=== PATIENT | female | born 1935 | race Caucasian/White ===

== ENCOUNTER 2017-01-10 10:16 | Emergency (ER) | payer MEDICARE, BC, OTHER ==
[2016-08-20 12:28] VITALS: BMI 28.2
[~2017-01-10 10:16] MED LIST: ADVAIR HFA 45/212 GM INH; ARAVA10 MG PO; ARICEPT5 MG PO; CARAFATE1 G PO; CATAPRES0.1 MG PO; CELEXA20 MG PO; HYDROCODONE-APA1 TAB PO; ISOSORBIDE MONO30 M1 PO; LIPITOR80 MG PO; LYRICA75 MG PO; NORMODYNE / TR200 MG PO; NORVASC5 MG PO; PEPCID20 MG PO; PLAVIX75 MG PO; SINGULAIR10 MG PO
[2017-01-10 11:46] LABS: BASOPHILS 0.4 % (0.0-2.0); EOSINOPHILS 1.2 % (0-7); HEMATOCRIT 24.9 % (36.0-48.0); HEMOGLOBIN 7.9 g/dL (12-16); IMMATURE GRANULOCYTES 0.2 % (0-5); LYMPHOCYTES 22.7 % (15-50); MCH 31.6 pg (26.0-34.0); MCHC 31.7 g/dL (31.0-37.0); MCV 99.6 fL (80.0-100.0); MEAN PLATELET VOLUME 10.2 fL (7.4-10.4); MONOCYTES 11.8 % (2-11); NEUTROPHILS 63.7 % (40-80); PLATELET COUNT 194 10x3/uL (130-400); RDW 16.2 % (11.5-14.5)
[2017-01-10 12:02] LABS: ALBUMIN 2.9 g/dL (3.4-5.0); ANION GAP 8.9 mmol/L (8-16); BILIRUBIN - TOTAL 0.33 mg/dL (0.2-1.3); CALCIUM 8.3 mg/dL (8.5-10.1); CARBON DIOXIDE 32.5 mmol/L (21.0-32.0); CREATININE - SERUM 3.1 mg/dL (0.6-1.3); POTASSIUM - SERUM 3.4 mmol/L (3.5-5.1)
== END 2017-01-10 14:20 | disposition home or self-care (01) ==
LOC: D.ER 10:16
PROVIDERS: Emergency Medicine
DX: R53.1 Weakness (principal); I12.0 Hypertensive chronic kidney disease with stage 5 chronic kidney disease or end stage renal disease; N18.6 End stage renal disease; D64.9 Anemia, unspecified; E11.9 Type 2 diabetes mellitus without complications; F03.90 Unspecified dementia, unspecified severity, without behavioral disturbance, psychotic disturbance, mood disturbance, and anxiety

== ENCOUNTER 2017-01-15 11:12 | Inpatient (IN) | payer MEDICARE, BC, OTHER ==
[~2017-01-15] VITALS: Ht 170.2 cm; Wt 83.0 kg
--- NOTE | ~2017-01-15 | DS ---
PATIENT:BRITNI NUNN :37 MEDICAL RECORD: [id number] DISCHARGE SUMMARY ADMISSION DATE: 01/15/17 DISCHARGE DATE: 01/17/17 HISTORY OF PRESENT ILLNESS: Ms. Nunn is a very pleasant 81-year-old white female with end-stage renal disease on chronic dialysis, has been stable with no recent admissions. In the dialysis unit in the past week she related black tarry stools along with falling hemoglobin and hematocrit requiring 2 units of packed cells. Due to evidence of GI bleeding, she was admitted for the above. HOSPITAL COURSE: The patient was begun on active medical therapy, was seen by Dr. Li of GI and underwent an EGD with finding of some antral erosions along with a polypoid duodenal lesion that may have been the site of bleeding that was not actively bleeding at the time of EGD. She did receive transfusion of 1 unit. She did not receive any further transfusion during the hospitalization. Following that, she underwent a colonoscopy that had 2 polypectomies, but no other, and 1 small ulcer that was not bleeding, but no other major lesions were identified. Postoperatively, her hemoglobin and hematocrit were stable and she was otherwise asymptomatic. DISCHARGE DIAGNOSES: 1. Gastrointestinal bleeding with probable duodenal source. 2. End-stage renal disease. 3. Recurrent transfusion due to gastrointestinal bleeding with chronic anemia. 4. Organic heart disease, status post cardiac stenting. 5. Hypertension. 6. Hyperlipidemia. PLAN: The patient will be discharged today following her dialysis. She will resume her outpatient dialysis schedule. We will see her on a weekly basis in the dialysis unit starting next week. She will resume her outpatient Epogen. DISCHARGE MEDICATIONS: Will be Celexa 20 mg at bedtime, Aricept 5 mg at bedtime, Protonix 40 mg daily, Renvela 800 mg 2 t.i.d. and Carafate 1 g before meals and at bedtime. TRANSINT:[id number] Voice Confirmation ID: [id number] DOCUMENT ID: [id number] OANH GANNON MD CC: [id number] DICTATION DATE: 01/17/17624 SHIPPING HAND: 01/17/172308 DIS IN 01/17/17 [id number] [place] [id number]
--- NOTE | ~2017-01-15 | HP ---
PATIENT: BRITNI NUNN MEDICAL RECORD: [id number] ACCOUNT: [id number] LOCATION:D. D.2130 : 37 ADMISSION DATE: 01/15/17 HISTORY AND PHYSICAL EXAMINATION Admitted to inpatient for gastrointestinal bleed requiring transfusion, multiple. HISTORY OF PRESENT ILLNESS: She is a 81-year-old female with a past medical history of GI bleeding and colonic polyps with removal by Dr. Maldonado and Dr. Newby. She has been having noticeable black tarry stools, required 2 units of packed red blood cells on Friday and her hemoglobin went down to 7.8 rather than up. She has been having some dyspepsia as well. She has been taking Pepcid at home, but has a history of GI issues, seen by Dr. Maldonado and Dr. Newby. REVIEW OF SYSTEMS: Weakness and fatigue, dyspnea on exertion. No cough or orthopnea. No chest pain, no angina. All other review of systems are negative. ALLERGIES: ALBUTEROL, CODEINE, DEMEROL, IRON SULFATE, LISINOPRIL, PENICILLINS. FAMILY HISTORY: Father had pneumonia. Mother had from complications of a fall. SOCIAL HISTORY: She is still living on her own with help from family. No alcohol or tobacco. PAST MEDICAL HISTORY: 1. COPD. 2. End-stage renal disease. 3. Degenerative joint disease. 4. Depression. 5. Diabetes. 6. Dialysis AV fistula in left arm. 7. Disc herniation. 8. History of gouty arthritis. 9. Hypertension. 10. Rheumatoid arthritis. 11. Anemia of CKD. PAST SURGICAL HISTORY: Appendectomy, hysterectomy, tonsillectomy, cholecystectomy, left arm AV fistula replacement, cataract removal, bilateral; dialysis catheter placement removal, angioplasty with left circumflex stent in 06/2014, EGD in 06/[address] Maldonado with biopsy, colonoscopy as well. HOME MEDICATIONS: We are trying to obtain her home medication list. What we have listed may be inaccurate. She is to take PhosLo 2 with meals t.i.d., Zofran 4 mg 1 every 4 hours p.r.n. nausea, Pepcid 20 a day, Advair 2 puffs b.i.d., Plavix 75 a day, Catapres 0.1 p.r.n. systolic over 160, Aricept 5 mg a day, Lasix 20 b.i.d., Lipitor 80 at night, Biotin 1 tab daily, Singulair 10 at night, Celexa 20 mg daily, Trandate 100 mg half a tab; Lyrica 50 mg 1 in the morning, 2 at bedtime; Carafate 1 q.i.d., aspirin 81 a day, Zanaflex 1/2 a tablet every 8 hours p.r.n. back spasm, Mirapex 0.125 daily, Imdur 60 mg a day, EMLA cream p.r.n. and sliding scale. She is likely not taking all the above medications and these do need to be clarified. HISTORY AND PHYSICAL [id number] BRITNI NUNN PHYSICAL EXAMINATION: VITAL SIGNS: She is 142/72, 72 heart rate, 18 respiratory rate. GENERAL: She is alert and oriented times 3. HEENT: Normocephalic, atraumatic. Clear nares. Clear throat. NECK: No JVD or thyromegaly. CHEST: Regular rhythm. S1 and S2. LUNGS: Grossly clear to auscultation after dialysis. Dialysis fistula with good bruit. No sign of infection. ABDOMEN: Nontender in all 4 quadrants with no guarding. EXTREMITIES: Trace lower extremity edema. No issues or new abnormalities with her gait. NEUROLOGIC: Cranial nerves II-XII are grossly intact. LABORATORY DATA: CMP, CBC, phosphorus, INR, type and hold 3 units of packed red blood cells are pending. Protonix 40 mg IV b.i.d., Carafate 1 g p.o. q.i.d. ASSESSMENT: 1. Gastrointestinal bleed, certainly appreciate Dr. Maldonado. We will let her know that she is being admitted to the hospital for consultation. 1. End-stage renal disease. We will continue dialysis prescription Mondays, Wednesdays and Fridays. 2. Coronary artery disease with stent placement back in 2013. It should be okay to hold aspirin and Plavix if she is still taking these medications. 3. Hyperlipidemia, has been on Lipitor. 4. Allergic rhinitis, on Singulair p.r.n. 5. Diabetes mellitus. I believed she has just been on a sliding scale. We will need to ask her if she is still checking her sugar at home. We will of course check her glucose on BMP and hemoglobin A1c if needed. 6. Restless leg syndrome with diabetic neuropathy, had been on Mirapex, Zanaflex and Lyrica. We will clarify her dose. 7. Chronic obstructive pulmonary disease, Advair 2 puffs b.i.d. as needed along with her Singulair. 8. Dementia. She is on Aricept 5 mg at night, but is oriented times 4. PLAN: 1. Please see orders. 2. Appreciate GI. 3. We will continue dialysis. 4. Packed red blood cells as needed. 5. Epogen as needed as well. TRANSINT:[id number] Voice Confirmation ID: [id number] DOCUMENT ID: [id number] FLAKO RAMOS MD CC: [id number] DICTATION DATE: 01/15/17916 MANGLE ROLL OPERATOR: 01/15/17 1146 ADM IN [facility] [address] [place] [address]
[2017-01-15 11:41] VITALS: BP 118/48; BMI 28.7
[2017-01-15 12:07] LABS: BASOPHILS 0.3 % (0.0-2.0); EOSINOPHILS 2.1 % (0-7); HEMATOCRIT 28.7 % (36.0-48.0); HEMOGLOBIN 9.1 g/dL (12-16); IMMATURE GRANULOCYTES 0.2 % (0-5); LYMPHOCYTES 12.4 % (15-50); MCH 29.7 pg (26.0-34.0); MCHC 31.7 g/dL (31.0-37.0); MCV 93.8 fL (80.0-100.0); MEAN PLATELET VOLUME 10.1 fL (7.4-10.4); MONOCYTES 10.5 % (2-11); NEUTROPHILS 74.5 % (40-80); PLATELET COUNT 211 10x3/uL (130-400); RBC 3.06 10x6/uL (4.00-5.40); RDW 21.1 % (11.5-14.5); WBC 6.1 10x3/uL (4.8-10.8)
--- NOTE | 2017-01-15 12:20 | NUR ---
20G IV PLACED IN RIGHT HAND, 1ST ATTEMPT. SALINE LOCK PLACED. PT TOLERATED WELL. PROCEDURE, BLOOD, AND ANESTHESIA CONSENTS OBTAINED PER LIVIA LAWLER. PT DENIES FURTHER NEEDS AT THIS TIME.
[2017-01-15 12:34] LABS: INR 0.99 (0.85-1.17); PROTIME 12.9 SECONDS (11.6-15.0)
[2017-01-15 12:43] LABS: ANION GAP 14.8 mmol/L (8-16); BILIRUBIN - TOTAL 0.45 mg/dL (0.2-1.3); CALCIUM 8.1 mg/dL (8.5-10.1); CARBON DIOXIDE 29.5 mmol/L (21.0-32.0); CREATININE - SERUM 3.8 mg/dL (0.6-1.3); POTASSIUM - SERUM 3.3 mmol/L (3.5-5.1); PROTEIN - SERUM 7.4 g/dL (6.4-8.2)
[2017-01-15 12:46] LABS: PHOSPHOROUS 2.8 mg/dL (2.5-4.9)
--- NOTE | 2017-01-15 14:28 | NUR ---
EKG COMPLETED PER ORDER. PRE-OP MEDS COMPLETED AND GIVEN ORDERED. CONSENTS SIGNED AND IN CHART PT WAITING TO BE TAKEN FOR EGD.
--- NOTE | 2017-01-15 16:03 | NUR ---
IV ACCESS-22 GAUGE INSERTED IN RIGHT INNER FOREARM. ANTHONY RUSSELL RN
[2017-01-15 20:00] VITALS: BP 118/45
--- NOTE | 2017-01-15 20:00 | NUR ---
REPORT RECEIVED AND CARE ASSUMED. AWAKE AND ALERT. VISITING WITH FAMILY AT BEDSIDE. DRINKING GO-LYTELY FOR COLOMOSCOPY IN AM. AMBULATES TO BATHROOM WITH ASSISTANCE. NO VOICED NEEDS. WILL CONTINUE TO MONITOR.
[2017-01-16 00:49] VITALS: BP 155/47
--- NOTE | 2017-01-16 02:06 | NUR ---
NORCO 10/325 MG PO GIVEN FOR BACK PAIN AND ARTHRITIS.
[2017-01-16 05:42] VITALS: BP 148/46
[2017-01-16 05:44] LABS: BASOPHILS 0.8 % (0.0-2.0); EOSINOPHILS 2.3 % (0-7); HEMATOCRIT 28.4 % (36.0-48.0); HEMOGLOBIN 8.8 g/dL (12-16); IMMATURE GRANULOCYTES 0.2 % (0-5); LYMPHOCYTES 20.7 % (15-50); MCH 29.7 pg (26.0-34.0); MONOCYTES 12.1 % (2-11); NEUTROPHILS 63.9 % (40-80); PLATELET COUNT 204 10x3/uL (130-400); RBC 2.96 10x6/uL (4.00-5.40); RDW 20.5 % (11.5-14.5); WBC 4.8 10x3/uL (4.8-10.8)
[2017-01-16 05:50] LABS: MCV 95.9 fL (80.0-100.0)
[2017-01-16 06:14] LABS: ANION GAP 16.6 mmol/L (8-16); CALCIUM 8.2 mg/dL (8.5-10.1); CARBON DIOXIDE 28.9 mmol/L (21.0-32.0); POTASSIUM - SERUM 3.5 mmol/L (3.5-5.1)
[2017-01-16 07:25] VITALS: BP 151/46
--- NOTE | 2017-01-16 11:08 | NUR ---
Patient Name: BRITNI NUNN Admission Status: Urgent Accout number: [id number] Admission Date: 01-15-2017 : 1935 Admission Diagnosis: Attending: CARLOS Current LOS: 1 Anticipated DC Date: 01-17-2017 Planned Disposition: Home with Home Health Primary Insurance: MEDICARE A & B Discharge Planning Comments: * Is the patient Alert and Oriented? Yes 0 * How many steps to enter\exit or inside your home? RAMP 0 * PCP DR. TAMIKO BROWN 0 * Pharmacy [facility] 0 * Preadmission Environment Home Alone 0 * ADLs Independent 0 * Equipment Walker 0 * Other Equipment NO MEDICAL EQUIPMENT PROVIDER PREFERENCE 0 * List name and contact numbers for known caregivers / representatives who currently or will assist patient after discharge: ELVIS MEADE, SON, 0 * Community resources currently utilized Home Health Other Private Duty Care 0 * Please name any agencies selected above. -OUTPATIENT DIALYSIS, [facility], MWF, 0530 -[facility] (?), -PRIVATE SITTER, [facility], DAY TIME HOURS EVERY DAY 0 * Additional services required to return to the preadmission environment? No 0 * Can the patient safely return to the preadmission environment? Yes 0 * Has this patient been hospitalized within the prior 30 days at any hospital? No 0 CM MET WITH PT IN ROOM TO DISCUSS DISCHARGE PLANNING AND NEEDS. PT REPORTS LIVING AT HOME INDEPENDENTLY AND ALONE. PT'S SON LIVES NEXT DOOR AND ASSISTS PT IF NEEDED. PT HAS PRIVATE DUTY SITTER, [facility], EVERY DAY DURING DAYTIME HOURS. [facility] ASSISTS WITH TRANSPORT TO AND FROM DIALYSIS ON MWF SCHEDULE AT 0530 AM TO [facility]. PT HAS A WALKER WITH NO MEDICAL EQUIPMENT PROVIDER PREFERENCE. PT HAS [facility] FOR NURSING AND PHYSICAL THERAPY. CM DISCUSSED AVAILABILITY OF HOME HEALTH, REHAB SERVICES AND MEDICAL EQUIPMENT. PT PLANS TO DISCHARGE HOME, WANTS [facility] RESUMED, [facility] WILL TRANSPORT HOME AT DISCHARGE. IMPORTANT MESSAGE FROM MEDICARE PROVIDED AND EXPLAINED. CM CALLED [facility], . SPOKE TO B[place]NA WHO WILL RESUME HOME HEALTH AFTER PT'S DISCHARGE. TO RESUME HOME HEALTH AT DISCHARGE, NOTIFY [facility] AT [phone], FAX DISCHARGE INFORMATION TO [facility] AT [phone]. Outpatient Coding Specialist: Samuel Franco
[2017-01-16 12:54] VITALS: BP 158/43
[2017-01-16 13:53] VITALS: Ht 170.2 cm; Wt 83.0 kg
[2017-01-16 16:19] VITALS: BP 163/41
--- NOTE | 2017-01-16 17:59 | OP ---
PATIENT NAME: BRITNI NUNN MEDICAL RECORD: [id number] :37 LOCATION:D.M2 D.2130 ADMISSION DATE:01/15/17 SURGEON: KRAIG PALMER DO DATE OF OPERATION: 01/15/2017 PROCEDURE: EGD. SCOPE: Olympus video pediatric colonoscope. MEDICATIONS: Propofol 80 mg IV per anesthesia. INDICATIONS FOR PROCEDURE: Upper GI bleed/melena. FINDINGS: Informed consent was given. The patient was made comfortable with the above medication. After reaching an adequate level of sedation by slow IV push, the patient was placed on her left side. The endoscope was then advanced through the mouth under direct visualization to the fourth portion of the duodenum. The esophagus appeared normal in its entirety, including the GE junction, without evidence of erosions or ulcerations. The endoscope was advanced into the stomach and retroflexed to view the fundus and cardia. There were no abnormalities visualized there. The endoscope was then advanced down through the body of the stomach to the antrum and prepyloric region where there are multiple superficial ulcerations. There was no evidence of current or recent bleeding from these sites. There was a single polypoid-like tissue involved with the pylorus, which was prolapsing to and fro with gastric motility. The tip of this tissue appeared erythematous and potentially hemorrhagic consistent with prolapsing tissue. It is felt that this could be the potential site of intermittent bleeding while taking Plavix. The scope was advanced beyond this site down into the duodenum where the bulb, second portion, third portion, and fourth portion of the duodenum appeared normal without erosions or ulcerations. No interventions were performed as there is no active bleeding. The scope was withdrawn from the patient. The patient tolerated the procedure well and there were no complications. ESTIMATED BLOOD LOSS: Zero. IMPRESSIONS: 1. Antral and prepyloric erosions without evidence of current or recent bleeding. 2. Single polypoid tissue site involving the pylorus with an erythematous/hemorrhagic tip, which could be the site of bleeding with use of Plavix. PLAN AND RECOMMENDATIONS: 1. Return to floor. 2. Continue monitoring hemoglobin levels and monitor for change in stools. 3. If ongoing bleeding concerns, the patient may need a colonoscopy to rule out a slow lower GI bleed. 4. Consider discontinuation of Plavix and anticoagulants due to a high risk for bleeding. 5. Continue proton pump inhibitor for 6-8 weeks to treat the superficial erosions. TRANSINT:[id number] Voice Confirmation ID: [id number] DOCUMENT ID: [id number] OPERATIVE REPORT [id number] BRITNI NUNN NATHAN A DO at 1759 CC: [id number] DICTATION DATE: 01/15/17 1533 TINTER PHOTOGRAPH: 01/15/17 1601 ADM IN [facility] [address] [id number]
[2017-01-16 20:00] VITALS: BP 173/57
--- NOTE | 2017-01-16 23:42 | NUR ---
RESUMED CARE OF PT, PT SLEEPING, BED IS LOW, SRX2, CALL LIGHT IN REACH, WILL CONTINUE TO MONITOR
--- NOTE | 2017-01-17 00:33 | NUR ---
PLACED BOX ALARM ON PT
[2017-01-17 02:00] VITALS: BP 113/50
[2017-01-17 04:30] VITALS: BP 163/54
[2017-01-17 04:47] LABS: BASOPHILS 0.4 % (0.0-2.0); EOSINOPHILS 1.7 % (0-7); HEMATOCRIT 28.4 % (36.0-48.0); HEMOGLOBIN 8.8 g/dL (12-16); IMMATURE GRANULOCYTES 0.2 % (0-5); LYMPHOCYTES 27.6 % (15-50); MCH 29.5 pg (26.0-34.0); MCV 95.3 fL (80.0-100.0); MONOCYTES 7.9 % (2-11); NEUTROPHILS 62.2 % (40-80); PLATELET COUNT 216 10x3/uL (130-400); RBC 2.98 10x6/uL (4.00-5.40); RDW 19.8 % (11.5-14.5); WBC 4.7 10x3/uL (4.8-10.8)
[2017-01-17 05:09] LABS: ANION GAP 18.1 mmol/L (8-16); CALCIUM 8.7 mg/dL (8.5-10.1); CARBON DIOXIDE 26.8 mmol/L (21.0-32.0); POTASSIUM - SERUM 3.9 mmol/L (3.5-5.1)
[2017-01-17 05:11] LABS: CREATININE - SERUM 6.7 mg/dL (0.6-1.3)
[2017-01-17 07:31] VITALS: BP 131/44
--- NOTE | 2017-01-17 07:58 | NUR ---
RECEIVED REPORT FROM NIGHT NURSE. PATIENT ASLEEP. WILL CONTINUT TO MONITOR.
--- NOTE | 2017-01-17 09:42 | NUR ---
DIALYSIS COORDINATOR: PATIENT PATHWAYS: [facility] DIALYSIS MON/FRI/FRI 1ST SHIFT. CLINIC NOTIFIED AND UPDATED MEDICAL RECORDS FORWARDED TO CLINIC. PATIENT IS EXPECTED TO DISCHARGE LATER TODAY AFTER DIALYSIS. JAY MENENDEZ
--- NOTE | 2017-01-17 11:00 | NUR ---
ASSUMED CARE FOR THIS PT FOR THE REMAINDER OF TODAYS DAYSHIFT. PT IS DOWN IN DIALYSIS. CALLED TO CHECK ON HER AND SHE IS TOLERATING DIALYSIS FINE AND DENIES ANY CURRENT NEEDS. WILL CPOC.
--- NOTE | 2017-01-17 14:37 | NUR ---
PT RETURNED FROM DIALYSIS AND IS READY TO BE DISCHARGED. VSS. FAMILY IN ROOM FOR D/C TRANSPORTATION. D/C PTS R.WRIST PIV WITH CATHETER TIP FULLY INTACT. DISCHARGE TEACHING PROVIDED AND PAPERS SIGNED IN THE CHART. PT IN W/C AND READY TO LEAVE FLOOR. NO QUESTIONS OR CONCERNS.
--- NOTE | 2017-01-20 13:02 | OP ---
PATIENT NAME: BRITNI NUNN MEDICAL RECORD: [id number] :37 LOCATION:D.M2 D.2130 ADMISSION DATE:01/15/17 SURGEON: KRAIG PLAMER DO DATE OF OPERATION: 01/16/2017 PROCEDURE: Colonoscopy with snare polypectomy. SCOPE: Externautics video pediatric colonoscope. MEDICATIONS: Propofol 300 mg IV per anesthesia. INDICATIONS FOR PROCEDURE: Severe anemia. FINDINGS: Informed consent was given. The patient was made comfortable with the above medication. After reaching an adequate level of sedation by slow IV push, the patient was placed on her left side. A digital rectal examination was performed and revealed some small external hemorrhoids, which were not bleeding. The endoscope was then advanced under direct visualization through the rectum to the cecum, evidenced by the appendiceal orifice and ileocecal valve. This was done with moderate difficulty, requiring counter pressure and position changes. The scope was then slowly withdrawn and the mucosa was carefully examined. On this examination, there were 2 descending colon polyps identified measuring from 5 mm in size to 8 mm in size. Both were removed with hot snare polypectomy in a single piece and completely retrieved. There was a single, small, superficial ulcer without bleeding stigmata identified in the descending colon, which did not appear that it was bleeding or has recently bleed. There was also some mild diverticulosis involving the sigmoid colon. There was no blood visualized within the colon and no signs of recent bleeding. The endoscope was withdrawn from the patient. The patient tolerated the procedure well and there were no complications. Retroflexion was performed in the rectum and was normal. The estimated blood loss was less than 3 cc. Withdrawal time was greater than 15 minutes. IMPRESSION: 1. Two descending colon polyps removed with hot snare polypectomy. 2. A small superficial ulcer was visualized in the descending colon without bleeding stigmata. 3. Diverticulosis of mild severity. PLAN AND RECOMMENDATIONS: 1. Return to floor and monitor for further bleeding. 2. Monitor hemoglobin and transfuse as necessary. 3. Consider a capsule endoscopy as an outpatient. 4. Repeat colonoscopy in 6 months to a year as an outpatient for surveillance of polyps. DISCUSSION: The patient states that she had black stools until approximately half way through her prep when her stools cleared and she had no further signs of blood in her stool. TRANSINT:[id number] Voice Confirmation ID: [id number] DOCUMENT ID: [id number] OPERATIVE REPORT [id number] BRITNI NUNN,KRAIG Etienne DO at 1302 CC: [id number] DICTATION DATE: 01/16/171754 AIRCRAFT WORKER: 01/16/172141 DIS IN 01/17/17 [id number] [place] [id number]
== END 2017-01-17 14:39 | disposition home health service (06) | DRG 377 ==
LOC: D.M2 11:12
PROVIDERS: Internal Medicine Gastroenterology; Internal Medicine Nephrology; ADMIT Internal Medicine Nephrology
PROC: 0DJ08ZZ Inspection of Upper Intestinal Tract, Via Natural or Artificial Opening Endoscopic (ICD-10-PCS; principal; 2017-01-15 15:30)
PROC: 0DBM8ZZ Excision of Descending Colon, Via Natural or Artificial Opening Endoscopic (ICD-10-PCS; 2017-01-16)
DX: K92.2 Gastrointestinal hemorrhage, unspecified (principal); N18.6 End stage renal disease; K63.3 Ulcer of intestine; I12.0 Hypertensive chronic kidney disease with stage 5 chronic kidney disease or end stage renal disease; K31.7 Polyp of stomach and duodenum; D12.4 Benign neoplasm of descending colon; K57.90 Diverticulosis of intestine, part unspecified, without perforation or abscess without bleeding; J44.9 Chronic obstructive pulmonary disease, unspecified; E11.22 Type 2 diabetes mellitus with diabetic chronic kidney disease; Z99.2 Dependence on renal dialysis; E11.40 Type 2 diabetes mellitus with diabetic neuropathy, unspecified; M06.9 Rheumatoid arthritis, unspecified; D63.1 Anemia in chronic kidney disease; E78.5 Hyperlipidemia, unspecified; I25.10 Atherosclerotic heart disease of native coronary artery without angina pectoris; Z95.5 Presence of coronary angioplasty implant and graft; G25.81 Restless legs syndrome; F03.90 Unspecified dementia, unspecified severity, without behavioral disturbance, psychotic disturbance, mood disturbance, and anxiety

== ENCOUNTER 2017-03-28 09:50 | Emergency (ER) | payer MEDICARE, BC, OTHER ==
[2017-01-16 13:53] VITALS: BMI 28.6
[2017-03-28 11:00] LABS: BASOPHILS 0.2 % (0-2); EOSINOPHILS 0.5 % (0-7); HEMATOCRIT 38.3 % (36.0-48.0); HEMOGLOBIN 12.1 g/dL (12-16); IMMATURE GRANULOCYTES 0.2 % (0-5); LYMPHOCYTES 9.5 % (15-50); MCH 28.9 pg (26.0-34.0); MCHC 31.6 g/dL (31.0-37.0); MCV 91.4 fL (80.0-100.0); MEAN PLATELET VOLUME 11.3 fL (7.4-10.4); MONOCYTES 10.8 % (2-11); NEUTROPHILS 78.8 % (40-80); PLATELET COUNT 197 10x3/uL (130-400); RBC 4.19 10x6/uL (4.00-5.40); RDW 15.7 % (11.5-14.5); WBC 8.6 10x3/uL (4.8-10.8)
[2017-03-28 11:21] LABS: ALBUMIN 2.7 g/dL (3.4-5.0); ANION GAP 18.4 mmol/L (8-16); BILIRUBIN - TOTAL 0.9 mg/dL (0.2-1.3); CALCIUM 8.1 mg/dL (8.5-10.1); CARBON DIOXIDE 25.8 mmol/L (21.0-32.0); CREATININE - SERUM 4.3 mg/dL (0.6-1.3); POTASSIUM - SERUM 3.2 mmol/L (3.5-5.1); PROTEIN - SERUM 7.7 g/dL (6.4-8.2)
== END 2017-03-28 13:58 | disposition home or self-care (01) ==
LOC: D.ER 09:50
PROVIDERS: Emergency Medicine
DX: K59.00 Constipation, unspecified (principal); R10.31 Right lower quadrant pain; I12.0 Hypertensive chronic kidney disease with stage 5 chronic kidney disease or end stage renal disease; N18.6 End stage renal disease; E11.9 Type 2 diabetes mellitus without complications; R91.8 Other nonspecific abnormal finding of lung field

== ENCOUNTER 2017-04-07 07:43 | Inpatient (IN) | payer MEDICARE, BC, OTHER ==
[~2017-04-07] VITALS: Ht 170.2 cm; Wt 88.2 kg
[2017-04-07 08:46] LABS: BASOPHILS 0.2 % (0-2); EOSINOPHILS 0.7 % (0-7); HEMATOCRIT 40.1 % (36.0-48.0); HEMOGLOBIN 12.5 g/dL (12-16); IMMATURE GRANULOCYTES 0.2 % (0-5); LYMPHOCYTES 10.4 % (15-50); MCH 28.4 pg (26.0-34.0); MCHC 31.2 g/dL (31.0-37.0); MCV 91.1 fL (80.0-100.0); MEAN PLATELET VOLUME 11.4 fL (7.4-10.4); MONOCYTES 11.5 % (2-11); PLATELET COUNT 176 10x3/uL (130-400); RDW 15.5 % (11.5-14.5); WBC 8.4 10x3/uL (4.8-10.8)
[2017-04-07 09:03] LABS: ALBUMIN 2.4 g/dL (3.4-5.0); ANION GAP 20.2 mmol/L (8-16); BILIRUBIN - TOTAL 0.82 mg/dL (0.2-1.3); CALCIUM 9.3 mg/dL (8.5-10.1); CARBON DIOXIDE 25.2 mmol/L (21.0-32.0); CREATININE - SERUM 8.1 mg/dL (0.6-1.3); POTASSIUM - SERUM 4.4 mmol/L (3.5-5.1); PROTEIN - SERUM 7.3 g/dL (6.4-8.2)
[2017-04-07 09:14] LABS: APPEARANCE HAZY (CLEAR); BILIRUBIN NEGATIVE (NEGATIVE); COLOR YELLOW (YELLOW); GLUCOSE NEGATIVE (NEGATIVE); KETONE NEGATIVE (NEGATIVE); LEUKOCYTE ESTERASE 2+ (NEGATIVE); NITRITE NEGATIVE (NEGATIVE); PROTEIN TRACE mg/dL (NEGATIVE); UROBILINOGEN NORMAL (NORMAL)
[2017-04-07 09:15] LABS: WHITE CELLS - URINE >50 /hpf (0-5)
[2017-04-07 09:18] LABS: BACTERIA FEW /hpf (NONE SEEN); EPITHELIAL CELLS RARE /hpf (0-5); RED CELLS - URINE 0-5 /hpf (0-5)
--- NOTE | 2017-04-07 12:44 | NUR ---
CALLED ER TO GET REPORT, WAS INFOMRED THAT DANILO NURSE TAKING CARE OF PT IS AT LUNCH, WILL CALL REPORT WHEN SHE GETS BACK.
--- NOTE | 2017-04-07 14:15 | NUR ---
PT RECEIVED TO ROOM 2108, VIA [facility], ACCOMPANIED BY ER NURSE AND CAREGIVER. PT ORIENTED TO ROOM AND CALL LIGHT. NO BREAKDOWN NOTED TO SKIN. NS AT 75CC/HR STARTED INFUSING TO RT WRIST IV. SCD'S PLACED BILAT. PT DENIES ANY NEEDS AT THIS TIME. CALL LIGHT IN REACH, BED LOW AND WHEELS LOCKED, NAD NOTED, WILL CONTINUE TO [place].
[2017-04-07 15:06] VITALS: BP 136/46; BMI 29.3
--- NOTE | 2017-04-07 15:29 | NUR ---
PT TRANSFERED TO DIALYSIS VIA BED, NAD NOTED.
--- NOTE | 2017-04-07 15:54 | NUR ---
PAGED YESENIA GODDARD, WAITING ON HER TO CALL BACK.
[2017-04-07 16:27] VITALS: BP 159/69
--- NOTE | 2017-04-07 21:27 | NUR ---
REQUESTED PAIN PILL GIVEN. PT RESTING. NO OTHER NEEDS.
[2017-04-07 23:00] VITALS: BP 130/59
[2017-04-08 05:12] LABS: BASOPHILS 0.3 % (0-2); HEMATOCRIT 35.3 % (36.0-48.0); HEMOGLOBIN 10.8 g/dL (12-16); IMMATURE GRANULOCYTES 0.3 % (0-5); LYMPHOCYTES 15.5 % (15-50); MCH 27.9 pg (26.0-34.0); MCHC 30.6 g/dL (31.0-37.0); MCV 91.2 fL (80.0-100.0); MEAN PLATELET VOLUME 11.7 fL (7.4-10.4); MONOCYTES 15.3 % (2-11); NEUTROPHILS 67.6 % (40-80); PLATELET COUNT 187 10x3/uL (130-400); RBC 3.87 10x6/uL (4.00-5.40); RDW 15.6 % (11.5-14.5); WBC 7.1 10x3/uL (4.8-10.8)
[2017-04-08 05:25] LABS: ANION GAP 13.3 mmol/L (8-16); CARBON DIOXIDE 28.2 mmol/L (21.0-32.0)
[2017-04-08 05:26] LABS: CREATININE - SERUM 5.9 mg/dL (0.6-1.3); POTASSIUM - SERUM 3.5 mmol/L (3.5-5.1)
[2017-04-08 05:36] VITALS: BP 146/63
[2017-04-08 07:02] VITALS: Ht 170.2 cm; Wt 88.2 kg
--- NOTE | 2017-04-08 07:52 | NUR ---
AM ROUNDING- RECEIVED REPORT FROM ASSEMBLER TESTER NURSE NANCY. PT IS CURRENTLY LAYING IN BED ON RIGHT SIDE WITH EYES OPEN RESTING. IV PUMP IS BEEPING SAYING OCCLUDED, FLUSHED IV AND IV IS PATENT. ON ROOM AIR. NO MONITOR. IV SEEN TO RIGHT WRIST WITH NS RUNNING AT 75CC. RESERVE LEFT ARM FOR AVF. SCDS. PT IS C/O CHROINIC BACK PAIN. WILL SEE WHAT PT HAS FOR PAIN AND TX ORDERED. NO NEED AT CURRENT TIME. WILL CONTINUE TO MONITOR AND CONTINUE WITH PLAN OF CARE.
[2017-04-08 08:34] VITALS: BP 143/62
--- NOTE | 2017-04-08 09:37 | NUR ---
D/C PTS IV FLUIDS ORDERED.
[2017-04-08 12:24] VITALS: BP 142/68
--- NOTE | 2017-04-08 14:08 | NUR ---
ON MONITOR SHOWING SR, HR 76.
[2017-04-08 16:33] VITALS: BP 116/56
--- NOTE | 2017-04-08 17:25 | NUR ---
PT IS CURRENTLY SITTING UP IN BED WITH EYES OPEN RESTING. PT IS C/O 6/10 BACK PAIN. PT GIVEN TRAMADOL PRN ORDERED. FAMILY MEMBERS ARE AT BEDSIDE. NO NEED AT CURRENT TIME. WILL CONTINUE TO MONITOR.
[2017-04-08 19:00] VITALS: BP 160/68
--- NOTE | 2017-04-08 19:50 | NUR ---
REST QUIETLY IN BED, DENIES NEEDS.
[2017-04-09] VITALS: BP 195/67
--- NOTE | 2017-04-09 01:24 | NUR ---
REST IN BED WITH EYE CLOSE,BED LOW, CALL LIGHT WITHIN REACH.
[2017-04-09 04:00] VITALS: BP 157/55
--- NOTE | 2017-04-09 04:30 | NUR ---
PT'S STOOL CULTURE COLLECTED AND SENT TO LAB.
[2017-04-09 05:19] LABS: BASOPHILS 0.3 % (0-2); EOSINOPHILS 0.8 % (0-7); HEMATOCRIT 35.9 % (36.0-48.0); HEMOGLOBIN 11.3 g/dL (12-16); IMMATURE GRANULOCYTES 0.3 % (0-5); LYMPHOCYTES 13.3 % (15-50); MCH 28.7 pg (26.0-34.0); MCHC 31.5 g/dL (31.0-37.0); MCV 91.1 fL (80.0-100.0); MEAN PLATELET VOLUME 11.6 fL (7.4-10.4); MONOCYTES 14.7 % (2-11); NEUTROPHILS 70.6 % (40-80); PLATELET COUNT 184 10x3/uL (130-400); RBC 3.94 10x6/uL (4.00-5.40); RDW 15.8 % (11.5-14.5); WBC 7.7 10x3/uL (4.8-10.8)
[2017-04-09 05:45] LABS: ANION GAP 17.7 mmol/L (8-16); CREATININE - SERUM 7.7 mg/dL (0.6-1.3); POTASSIUM - SERUM 3.7 mmol/L (3.5-5.1)
--- NOTE | 2017-04-09 07:54 | NUR ---
AM ROUNDING- RECEIVED REPORT FROM RESPIRATORY EQUIPMENT ASSISTANT NURSE TERA. PT IS CURRENTLY SITTING UP IN BED WITH EYES CLOSED RESTING. ON ROOM AIR. ON MONITOR SHOWING SR, HR 71. IV SEEN TO RIGHT WRIST THAT IS CURRENTLY SALINE LOCKED. SCDS. FAMILY MEMBER JUST CAME TO INFORM ME THAT PT IS NEEDING SOMETHING FOR PAIN. WILL SEE WHAT PT HAS FOR PAIN AND TX PER ORDER. WILL CONTINUE TO MONITOR AND CONTINUE WITH PLAN OF CARE.
[2017-04-09 08:00] VITALS: BP 142/59
--- NOTE | 2017-04-09 10:22 | NUR ---
PT TO DIALYSIS VIA BED.
--- NOTE | 2017-04-09 11:07 | NUR ---
1000- LEANA, HOT DIP PLATING SUPERVISOR PAGED DEVANG AMIN NP REGARDING PTS HOME MEDICATIONS. RECEIVED CALLBACK FROM DEVANG AMIN NP, INFORMED HER THAT PTS HOME MEDICATIONS NEED TO BE RESTARTED PER DR. GANNON. DEVANG AMIN NP STATES SHE WILL REVIEW THEM AND RESTART.
--- NOTE | 2017-04-09 14:13 | NUR ---
1400- PT BACK FROM DIALYSIS VIA BED.
[2017-04-09 16:00] VITALS: BP 139/58
--- NOTE | 2017-04-09 16:28 | NUR ---
Patient Name: BRITNI NUNN Admission Status: ER Accout number: [id number] Admission Date: 04-07-2017 : 1935 Admission Diagnosis:DIARRHEA, UNSPECIFIED Attending: CARLOS Current LOS: 2 Anticipated DC Date: Planned Disposition: Alf Facility Primary Insurance: MEDICARE A & B PLANNED EXTERNAL PROVIDER: [facility] Discharge Planning Comments: * Is the patient Alert and Oriented? Yes 0 * How many steps to enter\exit or inside your home? RAMP 0 * PCP DR. TAMIKO BROWN 0 * Pharmacy [facility] 0 * Preadmission Environment Home Alone 0 * ADLs Partial Dependent 0 * Partial ADLs (Assistance needed) Medication Management 0 * Equipment Nebulizer Oxygen Walker 0 * Other Equipment [place] MEDICAL EQUIPMENT PROVIDER 0 * List name and contact numbers for known caregivers / representatives who currently or will assist patient after discharge: ELVIS MEADE, SON, NORMAN RAMIREZ, SISTER, 0 * Community resources currently utilized Home Health Other Private Duty Care 0 * Please name any agencies selected above. [facility] PRIVATE PAY CAREGIVER DAILY (DAY HOURS) OUTPATIENT DIALYSIS, [facility], M/W/F, 0600, CAREGIVER TRANSPORTS PT TO AND FROM DIALYSIS 0 * Additional services required to return to the preadmission environment? Yes * Can the patient safely return to the preadmission environment? Yes 0 * Has this patient been hospitalized within the prior 30 days at any hospital? No 0 CM MET WITH PT AND SISTER IN ROOM TO DISCUSS DISCHARGE PLANNING AND NEEDS. PT REPORTS LIVING AT HOME INDEPENDENTLY AND HAS A PRIVATE CAREGIVER DURING DAYTIME HOURS. THE CAREGIVER DRIVES PT TO AND FROM [facility] ON MWF 0600 SCHEDULE. PT HAS HOME HEALTH WITH [facility]. CM DISCUSSED AVAILABILITY OF HOME HEALTH, REHAB SERVICES AND MEDICAL EQUIPMENT. PT REPORTS SHE HOPES TO GET BETTER AND TO BE ABLE TO GO HOME. PT'S SISTER REPORTS THAT PT IS VERY WEAK AND MAY NEED REHAB. THEY DO NOT WANT REHAB AT [facility] FOR SURE PT IS NOT HAPPY WITH THE LAST VISIT THERE. PT HAS BEEN TO [facility] A COUPLE OF TIMES AND WOULD LIKE TO RETURN THERE IF PT NEEDS REHAB. CHOICE SIGNED FOR [facility]. IMPORTANT MESSAGE FROM MEDICARE PROVIDED AND EXPLAINED. CM WILL AWAIT MEDICAL STABILITY AND WILL REQUIRE PHYSICAL THERAPY EVALUATION TO DETERMINE REHAB NEEDS AND QUALIFICATION. [place] Measurer: Samuel Franco
--- NOTE | 2017-04-09 16:34 | NUR ---
PT IS CURRENTLY SITTING UP IN BED WITH EYES OPEN RESTING. GUEST ARE AT BEDSIDE. PT DENIES ANY NEED AT CURRENT TIME. CALL LIGHT IS IN REACH. WILL CONTINUE TO MONITOR.
--- NOTE | 2017-04-09 20:00 | NUR ---
PT SLEEPING IN BED AT THIS TIME. SHIFT ASSESSMENT COMPLETED UPON ARRIVAL TO FLOOR. PT SEEMS VERY WEAK AND IS SLOW TO RESPOND TO QUESTIONS. SHE IS ALERT AND ORIENTED AT THIS TIME. LEFT ARM RESERVE. FISTULA IN L ARM. CAROTID, RADIAL, PEDAL PULSES PALP. SKIN WARM TO TOUCH. BILAT BRUISING NOTED ON ARMS. ROOM AIR, RESP SHALLOW. S1S2 AUDIBLE. BOWEL SOUNDS ACTIVE IN ALL QUADS. SCD'S REMOVED AND SKIN INSPECTED, WNL. CALL LIGHT IN REACH. PT DENIES ANY REQUESTS AT THIS TIME.
[2017-04-09 21:05] VITALS: BP 152/62
[2017-04-10 01:19] VITALS: BP 144/55
--- NOTE | 2017-04-10 02:25 | NUR ---
PT RESTING ON HER BACK WITH NO S/S OF DISTRESS. TV ON, CALL LIGHT AND BEDSIDE TABLE WITHIN REACH. BED IN LOWEST POSITON. WILL CONTINUE TO MONITOR.
--- NOTE | 2017-04-10 05:34 | NUR ---
PT RESTING ON BACK. NO S/S OF DISTRESS. COMPLETE BED BATH AND LINEN CHANGE PROVIDED BY DIRECTOR OF MARKETING'S. PT LOOKS VERY COMFORTABLE AT THIS TIME. CALL LIGHT IN REACH. SCDS ON. BED IN LOWEST POSITION.
[2017-04-10 05:51] LABS: BASOPHILS 0.3 % (0-2); HEMATOCRIT 34.8 % (36.0-48.0); HEMOGLOBIN 10.8 g/dL (12-16); IMMATURE GRANULOCYTES 0.1 % (0-5); LYMPHOCYTES 17.2 % (15-50); MCH 28.1 pg (26.0-34.0); MCV 90.4 fL (80.0-100.0); MEAN PLATELET VOLUME 10.7 fL (7.4-10.4); MONOCYTES 14.7 % (2-11); NEUTROPHILS 66.7 % (40-80); PLATELET COUNT 170 10x3/uL (130-400); RBC 3.85 10x6/uL (4.00-5.40); RDW 16.1 % (11.5-14.5); WBC 7.2 10x3/uL (4.8-10.8)
[2017-04-10 06:00] LABS: ANION GAP 16.1 mmol/L (8-16); CALCIUM 8.5 mg/dL (8.5-10.1); CARBON DIOXIDE 30.3 mmol/L (21.0-32.0); POTASSIUM - SERUM 3.4 mmol/L (3.5-5.1)
[2017-04-10 06:02] LABS: CREATININE - SERUM 5.5 mg/dL (0.6-1.3); PHOSPHOROUS 5.2 mg/dL (2.5-4.9)
[2017-04-10 06:18] VITALS: BP 147/60
--- NOTE | 2017-04-10 07:13 | NUR ---
PT SITTING UP IN BED SLEEPING NO S/S DISTRESS NOTED. RR EVEN AND UNLABORED. WILL CONT TO MONITOR
[2017-04-10 08:09] VITALS: BP 126/50
--- NOTE | 2017-04-10 12:16 | NUR ---
DR SHETH AND THIS AUTHOR WENT TO SEE IF PT WANTED THE BRONCHOSCOPY. DR GANNON WROTE AN ORDER THAT STATED TO LET DR SHETH KNOW THAT PT IS WILLING TO DO BRONCH. PT IS STILL REFUSING TO HAVE BRONCHOSCOPY DONE, FAMILY ALSO REFUSING. D
[2017-04-10 12:52] VITALS: BP 113/46
--- NOTE | 2017-04-10 13:30 | NUR ---
Nutrition Follow Up: Pt appeared very sleepy at the time of RD visit. Family member present. Pt reported that her appetite is okay and she has eaten "some" of her meals. Family member stated that pt may be willing to try Nepro. Pt is eating 50% meal avg on a renal ADA diet. Wt loss since admit noted. +BM 04/09/17. Meds and labs reviewed. Rec consider liberalizing diet if feasible to promote po intake. Will send Nepro daily. RD following.
--- NOTE | 2017-04-10 13:50 | NUR ---
Dialysis Coordinator: [facility] Fri/Fri/Fri @ 6:00am. Spoke w/ patient's sister via phone in room. Medical records forwarded to [facility] for their records. JAY MENENDEZ.
[2017-04-10 16:19] VITALS: BP 105/42
--- NOTE | 2017-04-10 18:38 | NUR ---
PT SITTING UP IN BED SLEEPING RR EVEN AND UNLABORED. NO S/S DISTRESSNOTED
[2017-04-10 19:00] VITALS: BP 138/53
--- NOTE | 2017-04-10 19:30 | NUR ---
RECEIVED REPORT, PT SLEEPING, BED IS LOW, SRX2, BED ALARM IS ON, CALL LIGHT IN REACH, WILL CONTINUE PLAN OF CARE
[2017-04-11] VITALS: BP 138/54
--- NOTE | 2017-04-11 02:56 | NUR ---
YOUTH DEVELOPMENT SPECIALIST GAVE COMPLETE BEDBATH LINEN CHANGE
[2017-04-11 04:00] VITALS: BP 140/69
[2017-04-11 05:28] LABS: BASOPHILS 0.3 % (0-2); EOSINOPHILS 1.2 % (0-7); HEMOGLOBIN 10.9 g/dL (12-16); IMMATURE GRANULOCYTES 0.1 % (0-5); LYMPHOCYTES 11.4 % (15-50); MCH 28.2 pg (26.0-34.0); MCHC 31.1 g/dL (31.0-37.0); MCV 90.7 fL (80.0-100.0); MONOCYTES 15.1 % (2-11); NEUTROPHILS 71.9 % (40-80); PLATELET COUNT 183 10x3/uL (130-400); RBC 3.86 10x6/uL (4.00-5.40); RDW 16.3 % (11.5-14.5); WBC 7.6 10x3/uL (4.8-10.8)
[2017-04-11 05:34] LABS: ANION GAP 15.3 mmol/L (8-16); CARBON DIOXIDE 30.1 mmol/L (21.0-32.0); CREATININE - SERUM 6.8 mg/dL (0.6-1.3); POTASSIUM - SERUM 3.4 mmol/L (3.5-5.1)
--- NOTE | 2017-04-11 07:15 | NUR ---
PT SITTING UP IN BED WATCHING TV DENIES ANY NEEDS AT THIS TIME WILL CONT TO MONITOR
[2017-04-11 08:12] VITALS: BP 122/52
[2017-04-11 16:07] VITALS: BP 124/53
--- NOTE | 2017-04-11 17:56 | NUR ---
PT NOW IS WANTING TO DO BRONCHOSCOPY. DR SHETH IS SCHEDULING IT FOR EARLY FRIDAY AM WITH HIM. DR SHETH HAS TALKED WITH PT ALL WEEK ABOUT DOING BRONCH AND SHE HAS SAID NO EACH TIME BECAUSE THEY DO NOT WANT TO TREAT IT IF IT IS CANCER. PT IS NOW AGREEABLE AND READY TO DO BRONCH. DR SHETH ORDERED IT FOR FRIDAY. FAMILY AWARE.
[2017-04-11 18:39] LABS: BASOPHILS 0.3 % (0-2); EOSINOPHILS 0.9 % (0-7); HEMATOCRIT 34.6 % (36.0-48.0); HEMOGLOBIN 10.9 g/dL (12-16); IMMATURE GRANULOCYTES 0.1 % (0-5); LYMPHOCYTES 14.2 % (15-50); MCH 28.9 pg (26.0-34.0); MCHC 31.5 g/dL (31.0-37.0); MCV 91.8 fL (80.0-100.0); MEAN PLATELET VOLUME 10.6 fL (7.4-10.4); MONOCYTES 13.5 % (2-11); PLATELET COUNT 168 10x3/uL (130-400); RBC 3.77 10x6/uL (4.00-5.40); RDW 16.3 % (11.5-14.5); WBC 7.7 10x3/uL (4.8-10.8)
[2017-04-11 18:48] LABS: APTT 32.6 SECONDS (22.8-39.4); INR 1.13 (0.85-1.17); PROTIME 14.4 SECONDS (11.6-15.0)
[2017-04-11 19:00] VITALS: BP 155/64
--- NOTE | 2017-04-11 19:30 | NUR ---
RECEIVED REPORT, WILL ASSUME CARE OF PT, PT SLEEPING, BED IS LOW, SRX2, CALL LIGHT IN REACH, SCD ARE ON,BED ALARM IS ON, WILL CONTINUE PLAN OF CARE,
[2017-04-12] VITALS: BP 144/58
--- NOTE | 2017-04-12 00:16 | NUR ---
ASSESSMENT REMAINS UNCHANGED. PT RESTING SOUNDLY WITHOUT C/O OR DISTRESS NOTED. DENIES ANY CURRENT C/O PAIN. WILL CONT TO MONITOR
[2017-04-12 04:06] VITALS: BP 127/51
[2017-04-12 06:00] LABS: BASOPHILS 0.4 % (0-2); EOSINOPHILS 0.8 % (0-7); HEMATOCRIT 34.5 % (36.0-48.0); HEMOGLOBIN 10.7 g/dL (12-16); IMMATURE GRANULOCYTES 0.2 % (0-5); LYMPHOCYTES 13.6 % (15-50); MCH 28.5 pg (26.0-34.0); MCV 91.8 fL (80.0-100.0); MEAN PLATELET VOLUME 10.8 fL (7.4-10.4); MONOCYTES 14.4 % (2-11); NEUTROPHILS 70.6 % (40-80); PLATELET COUNT 173 10x3/uL (130-400); RBC 3.76 10x6/uL (4.00-5.40); RDW 16.4 % (11.5-14.5); WBC 8.4 10x3/uL (4.8-10.8)
[2017-04-12 06:16] LABS: ANION GAP 14.7 mmol/L (8-16); CALCIUM 8.1 mg/dL (8.5-10.1); CARBON DIOXIDE 30.5 mmol/L (21.0-32.0); PHOSPHOROUS 4.2 mg/dL (2.5-4.9); POTASSIUM - SERUM 3.2 mmol/L (3.5-5.1)
--- NOTE | 2017-04-12 07:15 | NUR ---
PT SITTING UP IN BED VISITOR AT BEDSIDE. DENIES NEEDS WILL CONT TO MONITOR
[2017-04-12 07:42] VITALS: BP 138/58
[2017-04-12 12:20] VITALS: BP 107/47
[2017-04-12 15:52] VITALS: BP 124/46
--- NOTE | 2017-04-12 18:05 | NUR ---
PT SITTING UP IN BED SLEEPING NO S/S DISTRESS NOTED RR EVEN AND UNLABORED.
[2017-04-12 20:00] VITALS: BP 127/67
--- NOTE | 2017-04-12 21:39 | NUR ---
PT LYING IN BED, EYES CLOSED, RESPIRATIONS EVEN AND UNLABORED. PT IS EASILY ROUSABLE TO VERBAL STIMULI, REQUESTING TO GET ON BED SALCEDO, EVENTUALLY NO OUTPUT. PT IS A MAX ASSIST, DEMONSTRATING GENERALIZED BILATERAL WEAKNESS. PT DENIES ANY OTHER NEEDS AT THIS TIME. CONTINUE TO MONITOR CLOSELY. BED LOW, CALL LIGHT IN REACH, SIDE RAILS X 2, HOB 30 DEGREES.
--- NOTE | 2017-04-13 00:32 | NUR ---
PT LYING IN BED, EYES CLOSED, RESPIRATIONS EVEN AND UNLABORED. PT IS EASILY ROUSABLE TO VERBAL STIMULI, DENIES ANY NEEDS. CONTINUE TO MONITOR CLOSELY. BED LOW, CALL LIGHT IN REACH, SIDE RAILS X 2, HOB 30 DEGREES.
--- NOTE | 2017-04-13 01:18 | NUR ---
PT IS LYING IN BED WITH HER EYES CLOSED, MOANING LOUDLY. PT IS C/O "HEARTBURN CAUSED BY THOSE ANTIBIOTICS". PT HAS NOTHING AT THIS TIME FOR PRN HEARTBURN OR NAUSEA. I DID ELEVATE PTS HOB TO 35-40 DEGREES. WILL CONTINUE TO MONITOR CLOSELY.
--- NOTE | 2017-04-13 01:37 | NUR ---
I FED PT A BANANA POPSICLE, PT STATES SHE HAS NOT BEEN EATING WELL. PT STATES THE POPSICLE DID HELP WITH HER HEART BURN/NAUSEA. WILL CONTINUE TO MONITOR CLOSELY.
[2017-04-13 04:00] VITALS: BP 106/44
[2017-04-13 04:59] LABS: BASOPHILS 0.3 % (0-2); EOSINOPHILS 0.7 % (0-7); HEMATOCRIT 35.3 % (36.0-48.0); HEMOGLOBIN 10.7 g/dL (12-16); IMMATURE GRANULOCYTES 0.3 % (0-5); LYMPHOCYTES 11.4 % (15-50); MCH 28.2 pg (26.0-34.0); MCHC 30.3 g/dL (31.0-37.0); MCV 92.9 fL (80.0-100.0); MEAN PLATELET VOLUME 10.9 fL (7.4-10.4); MONOCYTES 13.6 % (2-11); NEUTROPHILS 73.7 % (40-80); PLATELET COUNT 160 10x3/uL (130-400); RDW 16.5 % (11.5-14.5)
[2017-04-13 06:15] LABS: ANION GAP 14.8 mmol/L (8-16); CALCIUM 8.3 mg/dL (8.5-10.1); CARBON DIOXIDE 28.6 mmol/L (21.0-32.0); CREATININE - SERUM 6.2 mg/dL (0.6-1.3); POTASSIUM - SERUM 3.4 mmol/L (3.5-5.1)
[2017-04-13 08:00] VITALS: BP 133/47
--- NOTE | 2017-04-13 08:10 | NUR ---
AM ROUNDING- RECEIVED REPORT FROM MIRROR SPECIALIST NURSE DARWIN. PT IS CURRENTLY LAYING IN BED ON BACK WITH EYES CLOSED RESTING. ON ROOM AIR. ON MONITOR SHOWING SB, HR 59. IV SEEN TO RIGHT WRIST THAT IS CURRENTLY SALINE LOCKED. RESERVE LEFT ARM FOR AVF. NPO ORDERED FOR MIDNIGHT TONIGHT. SIGN PLACED ON PTS DOOR. NO NEED AT CURRENT TIME. WILL CONTINUE TO MONITOR AND CONTINUE WITH PLAN OF CARE.
[2017-04-13 12:00] VITALS: BP 100/43
[2017-04-13 16:00] VITALS: BP 119/44
--- NOTE | 2017-04-13 18:21 | NUR ---
PT IS CURRENTLY LAYING IN BED ON LEFT SIDE WITH EYES OPEN RESTING. NO NEED AT CURRENT TIME. BED IS IN LOW POSITION, SIDE RAILS ARE UP X2, AND CALL LIGHT IS IN REACH. WILL CONTINUE TO MONITOR.
--- NOTE | 2017-04-13 19:26 | NUR ---
CONSENTS FOR PROCEDURE SIGNED BY PT AND PLACED IN CHART. PT INSTRUCTED TO REMAIN NOTHING BY MOUTH AFTER MIDNIGHT, PT AGREES. NPO SIGN PLACED ON DOOR.
--- NOTE | 2017-04-13 20:47 | NUR ---
PT LYING IN BED, EYES CLOSED, RESPIRATIONS EVEN AND UNLABORED. PT IS EASILY ROUSABLE TO VERBAL STIMULI, DENIES ANY NEEDS. CONTINUE TO MONITOR CLOSELY. BED LOW, CALL LIGHT IN REACH, SIDE RAILS X 2, HOB 25 DEGREES.
[2017-04-13 22:41] VITALS: BP 93/32
[2017-04-14] VITALS (8 sets, daily range): BP systolic 98–129; BP diastolic 44–57
--- NOTE | 2017-04-14 00:12 | NUR ---
DISCUSSED NPO STATUS WITH PT TO BEGIN AFTER MIDNIGHT. PT ASKED ABOUT UPCOMING BRONCHOSCOPY, AND WHAT ALL WAS INVOLVED. QUESTIONS ANSWERED, NO NEEDS AT THIS TIME. CONTINUE TO MONITOR CLOSELY.
[2017-04-14 05:22] LABS: BASOPHILS 0.1 % (0-2); EOSINOPHILS 1.2 % (0-7); HEMOGLOBIN 10.8 g/dL (12-16); IMMATURE GRANULOCYTES 0.2 % (0-5); LYMPHOCYTES 12.7 % (15-50); MCH 28.3 pg (26.0-34.0); MCHC 30.9 g/dL (31.0-37.0); MCV 91.6 fL (80.0-100.0); MEAN PLATELET VOLUME 10.6 fL (7.4-10.4); MONOCYTES 14.1 % (2-11); NEUTROPHILS 71.7 % (40-80); PLATELET COUNT 171 10x3/uL (130-400); RBC 3.82 10x6/uL (4.00-5.40); RDW 16.5 % (11.5-14.5); WBC 9.5 10x3/uL (4.8-10.8)
[2017-04-14 05:40] LABS: INR 1.2 (0.85-1.17); PROTIME 15.1 SECONDS (11.6-15.0)
[2017-04-14 05:52] LABS: ANION GAP 14.9 mmol/L (8-16); BILIRUBIN - TOTAL 0.9 mg/dL (0.2-1.3); CALCIUM 8.4 mg/dL (8.5-10.1); CARBON DIOXIDE 28.9 mmol/L (21.0-32.0); POTASSIUM - SERUM 3.8 mmol/L (3.5-5.1)
[2017-04-14 05:59] LABS: PHOSPHOROUS 5.6 mg/dL (2.5-4.9)
--- NOTE | 2017-04-14 07:48 | NUR ---
TAKEN TO PROCEDURE VIA BED. PRE-OP MEDS GIVEN. CONSENTS SIGNED ON CHART. CONTINUE PLAN OF CARE AND SAFETY PRECAUTIONS.
--- NOTE | 2017-04-14 12:17 | NUR ---
Nutrition follow-up: Pt is currently NPO for procedure today. PO intake has been ~60% average of meals; slowly improving. Labs reviewed RDN following.
--- NOTE | 2017-04-14 20:07 | NUR ---
PT RETURNED FROM DIALYSIS, AWAKE, ALERT, ORIENTED, DENIES ANY NEEDS. CONTINUE TO MONITOR CLOSELY. BED LOW, CALL LIGHT IN REACH, SIDE RAILS X 2, HOB 30 DEGREES.
[2017-04-15] VITALS: BP 117/41; BP 127/47
--- NOTE | 2017-04-15 00:50 | NUR ---
PT LYING IN BED, AWAKE, ALERT, MUMBLING TO HERSELF, AT TIMES HARD TO UNDERSTAND. PT HAD MODERATE DIFFICULTY THIS EVENING TAKING HER PO MEDICATIONS, EVEN WITH PUDDING. PT STATES SHE DOES NOT LIKE APPLESAUCE. PT DEMONSTRATES MILD CONFUSION AT TIMES, BUT IS EASILY REORIENTED. PT DENIES ANY NEEDS. CONTINUE TO MONITOR CLOSELY.
[2017-04-15 01:18] VITALS: BP 127/47
--- NOTE | 2017-04-15 04:50 | NUR ---
PT LYING IN BED, AWAKE, MUMBLING TO HERSELF, DIFFICULT TO UNDERSTAND. PT DENIES ANY NEEDS WHEN ASKED IF SHE NEED SOMETHING. CONTINUE TO MONITOR CLOSELY.
[2017-04-15 05:35] VITALS: BP 115/47
[2017-04-15 06:02] LABS: ANION GAP 12.5 mmol/L (8-16); CALCIUM 7.9 mg/dL (8.5-10.1); CARBON DIOXIDE 28.9 mmol/L (21.0-32.0); POTASSIUM - SERUM 3.4 mmol/L (3.5-5.1)
[2017-04-15 06:03] LABS: CREATININE - SERUM 4.6 mg/dL (0.6-1.3)
[2017-04-15 06:05] LABS: BASOPHILS 0.3 % (0-2); EOSINOPHILS 0.6 % (0-7); HEMATOCRIT 33.7 % (36.0-48.0); HEMOGLOBIN 10.5 g/dL (12-16); IMMATURE GRANULOCYTES 0.2 % (0-5); MCH 28.8 pg (26.0-34.0); MCHC 31.2 g/dL (31.0-37.0); MCV 92.6 fL (80.0-100.0); MEAN PLATELET VOLUME 11.1 fL (7.4-10.4); MONOCYTES 14.9 % (2-11); PLATELET COUNT 190 10x3/uL (130-400); RBC 3.64 10x6/uL (4.00-5.40); RDW 16.6 % (11.5-14.5); WBC 8.8 10x3/uL (4.8-10.8)
--- NOTE | 2017-04-15 07:10 | NUR ---
RECIEVED REPORT. ASSUMED CARE OF PATIENT. CALL LIGHT WITHIN REACH. PATIENT RESTING SUPINE WITH EYES OPEN. PATIENT REQUEST BEDPAN. DENIES ANY OTHER NEEDS AT THIS TIME. RESP EVEN AND UNLABORED. NO DISTRESS.
--- NOTE | 2017-04-15 07:30 | NUR ---
PATIENT CONTINUE TO REQUEST TO STAY ON BEDPAN.
--- NOTE | 2017-04-15 07:58 | NUR ---
PATIENT HAVING LIQUID FOUL STOOL. ORDER TO CHECK FOR CDT. SPECIMEN COLLECTED AND SENT TO LAB AT THIS TIME. NO DISTRESS.
[2017-04-15 08:00] VITALS: BP 105/80
[2017-04-15 12:00] VITALS: BP 98/53
--- NOTE | 2017-04-15 15:27 | NUR ---
TURNED AND REPOSITIONED. NO DISTRESS.
[2017-04-15 15:51] VITALS: BP 127/57
--- NOTE | 2017-04-15 19:20 | NUR ---
RECEIVED REPORT, WILL ASSUME CARE OF PT, PT SLEEPING ON L. SIDE, BED IS LOW, SRX2, SCD ARE ON, CALL LIGHT IN REACH, BED ALARM IS ON, WILL CONTINUE PLAN OF CARE
[2017-04-15 20:08] LABS: ACID FAST SMEAR Negative (()); AFB SPECIMEN PROCESSING Concentration (())
--- NOTE | 2017-04-16 02:53 | NUR ---
22 G. IV STATED IN R. HAND.ANTIBONTIC INFUSING
--- NOTE | 2017-04-16 03:43 | NUR ---
SPEEDOMETER INSPECTOR AT BED SIDE TO OBTAIN VITALS, WILL CONT TO MONITOR.
[2017-04-16 04:51] VITALS: BP 125/42
[2017-04-16 06:32] LABS: BASOPHILS 0.1 % (0-2); EOSINOPHILS 1.1 % (0-7); HEMATOCRIT 33.1 % (36.0-48.0); HEMOGLOBIN 10.1 g/dL (12-16); IMMATURE GRANULOCYTES 0.1 % (0-5); LYMPHOCYTES 14.8 % (15-50); MCH 27.9 pg (26.0-34.0); MCHC 30.5 g/dL (31.0-37.0); MCV 91.4 fL (80.0-100.0); MEAN PLATELET VOLUME 10.9 fL (7.4-10.4); MONOCYTES 15.9 % (2-11); PLATELET COUNT 162 10x3/uL (130-400); RBC 3.62 10x6/uL (4.00-5.40); RDW 16.7 % (11.5-14.5); WBC 7.2 10x3/uL (4.8-10.8)
[2017-04-16 07:07] LABS: ANION GAP 19.8 mmol/L (8-16); CALCIUM 8.1 mg/dL (8.5-10.1); CARBON DIOXIDE 22.7 mmol/L (21.0-32.0); POTASSIUM - SERUM 3.5 mmol/L (3.5-5.1)
[2017-04-16 07:13] LABS: CREATININE - SERUM 5.8 mg/dL (0.6-1.3)
--- NOTE | 2017-04-16 07:19 | NUR ---
PT SITTING UP IN BED DENIES NEEDS WILL CONT TO MONITOR
[2017-04-16 09:07] VITALS: BP 120/49
[2017-04-16 11:18] LABS: FUNGUS STAIN Final report (())
--- NOTE | 2017-04-16 15:29 | NUR ---
Patient Name: BRITNI NUNN Encounter No: [id number] : 1935 Primary Insurance: MEDICARE A & B Anticipated DC Date: Planned Disposition: [facility] External Planned Provider: [facility], MEDICARE REHAB BED DCP follow-up note: CM REVIEWED CHART, SPOKE TO PT AFTER DIALYSIS IN ROOM REGARDING DISCHARGE PLAN AND NEEDS. PT REPORTS SHE THINKS SHE NEEDS REHAB, DOES NOT THINK SHE CAN TOLERATE THREE HOURS OF PROGRESSIVE THERAPY PER DAY FOR INPATIENT REHAB. PT WOULD LIKE CM TO SEND REFERRAL TO [facility] DISCUSSED LAST WEEK. CM CALLED AND SPOKE TO SANGEETHA AT [facility], , PROVIDED BRIEF REFERRAL INFORMATION AND FAXED REFERRAL FOR REVIEW TO SANGEETHA AT [phone]. CM WAITING ADMISSION DETERMINATION FROM [facility]. Samuel Franco, CASE MANAGEMENT
--- NOTE | 2017-04-16 15:31 | NUR ---
PT PULLED PIV OUT WITH CATH TIP INTACT. PT IS A VERY HARD STICK. I DO NOT SEE ANY ACCESSABLE VEIN. PT IS RESERVE LEFT ARM FOR DIALYSIS ACCESS. WILL ASK DR CHI IF MEDICATION CAN BE GIVEN AN ALTERNATE ROUTE.
[2017-04-16 16:32] VITALS: BP 120/65
--- NOTE | 2017-04-16 17:56 | NUR ---
PT SITTING UP IN BED DENIES NEEDS
--- NOTE | 2017-04-16 19:32 | NUR ---
RECEIVED REPORT,PT SLEEPING, BED IS LOW, SRX2, CALL LIGHT IN REACH, BED ALARM IS ON, WILL CONTINUE PLAN OF CARE
[2017-04-16 23:32] VITALS: BP 136/82
[2017-04-17] VITALS (11 sets, daily range): BP systolic 90–123; BP diastolic 41–60
--- NOTE | 2017-04-17 01:33 | NUR ---
CALL LIGHT IN REACH, WILL CONTINUE WITH PLAN OF CARE.
--- NOTE | 2017-04-17 02:33 | NUR ---
ASSESSMENT COMPLETE, SEE FLOWSHEET, PT SLEEPING, 02 IS ON 2L, BED IS LOW, SRX2, BED ALARM IS ON, CALL LIGHT IN REACH, WILL CONTINUE PLAN OF CARE
[2017-04-17 06:06] LABS: BASOPHILS 0.6 % (0-2); EOSINOPHILS 1.3 % (0-7); HEMATOCRIT 34.4 % (36.0-48.0); HEMOGLOBIN 10.5 g/dL (12-16); IMMATURE GRANULOCYTES 0.1 % (0-5); LYMPHOCYTES 18.1 % (15-50); MCH 28.5 pg (26.0-34.0); MCHC 30.5 g/dL (31.0-37.0); MEAN PLATELET VOLUME 10.9 fL (7.4-10.4); MONOCYTES 17.5 % (2-11); NEUTROPHILS 62.4 % (40-80); PLATELET COUNT 169 10x3/uL (130-400); RBC 3.68 10x6/uL (4.00-5.40); RDW 16.7 % (11.5-14.5); WBC 6.7 10x3/uL (4.8-10.8)
[2017-04-17 06:07] LABS: MCV 93.5 fL (80.0-100.0)
[2017-04-17 06:16] LABS: APTT 33.6 SECONDS (22.8-39.4); INR 1.25 (0.85-1.17); PROTIME 15.6 SECONDS (11.6-15.0)
[2017-04-17 06:28] LABS: ANION GAP 14.2 mmol/L (8-16); CALCIUM 8.1 mg/dL (8.5-10.1); CREATININE - SERUM 5.6 mg/dL (0.6-1.3); POTASSIUM - SERUM 3.2 mmol/L (3.5-5.1)
--- NOTE | 2017-04-17 07:17 | NUR ---
PT SITTING UP IN BED SLEEPING NO S/S DISTRESS NOTED. RR EVEN AND UNLABORED. WILL CONT TO MONITOR
--- NOTE | 2017-04-17 10:45 | NUR ---
PT TO CT GUIDED BIOPSY
--- NOTE | 2017-04-17 12:00 | NUR ---
PT IS BACK FROM PROCEDURE. VS ARE WNL. PT ALERT AND ORIENTED LETHARGIC BUT ARROUSES EASILY TO VOICE. WILL CONT TO MONITOR. FAMILY AT BEDSIDE
--- NOTE | 2017-04-17 13:03 | NUR ---
PT PULLED PIV OUT AGAIN WITH CATH TIP INTACT. WILL ASK DR CHI ABOUT IM INSTEAD OF IV ABX
--- NOTE | 2017-04-17 13:12 | NUR ---
PT VS ARE STILL STABLE ALERT AND ORIENTED. DENIES ANY NEEDS
--- NOTE | 2017-04-17 16:18 | NUR ---
PT SITTING UP IN BED VISITING WITH VISITOR. DENIES ANY NEEDS WILL CONT TO MONITOR
--- NOTE | 2017-04-17 18:35 | NUR ---
PT LAYING TO R SIDE SLEEPING RR EVEN AND UNLABORED NO S/S DISTRESS NOTED.
--- NOTE | 2017-04-17 19:43 | NUR ---
RECEIVED REPORT, WILL ASSUME CARE OF PT, PT IS SLEEPING ON R.SIDE, BED IS LOW, SRX2, CALL LIGHT IN REACH, BED ALARM IS ON, WILL CONTINUE PLAN OF CARE
--- NOTE | 2017-04-17 21:42 | NUR ---
HELD BLOODPRESSURE MED (LABETALOL) BP-WAS 90/40
[2017-04-18] VITALS: BP 118/41
--- NOTE | 2017-04-18 01:26 | NUR ---
ASSESSMENT COMPLETE, SEE FLOWSHEET, PT IS SLEEPING, BED IS LOW, SRX2, SCD ARE ON, BED ALARM IS ON, CALL LIGHT IN REACH, WILL CONTINUE TO MONITOR
[2017-04-18 04:00] VITALS: BP 102/46
--- NOTE | 2017-04-18 04:51 | NUR ---
PETROLEUM ENGINEERING PROFESSOR AT BEDSIDE TO OBTAIN VITALS, CALL LIGHT IN REACH. WILL CONTINUE WITH PLAN OF CARE.
[2017-04-18 06:01] LABS: BASOPHILS 0.4 % (0-2); EOSINOPHILS 0.9 % (0-7); HEMATOCRIT 34.3 % (36.0-48.0); HEMOGLOBIN 10.4 g/dL (12-16); IMMATURE GRANULOCYTES 0.1 % (0-5); LYMPHOCYTES 14.1 % (15-50); MCH 28.3 pg (26.0-34.0); MCHC 30.3 g/dL (31.0-37.0); MCV 93.2 fL (80.0-100.0); MEAN PLATELET VOLUME 10.7 fL (7.4-10.4); NEUTROPHILS 66.5 % (40-80); PLATELET COUNT 169 10x3/uL (130-400); RBC 3.68 10x6/uL (4.00-5.40); RDW 16.5 % (11.5-14.5); WBC 6.9 10x3/uL (4.8-10.8)
[2017-04-18 06:18] LABS: ANION GAP 12.3 mmol/L (8-16); CREATININE - SERUM 6.9 mg/dL (0.6-1.3); POTASSIUM - SERUM 3.3 mmol/L (3.5-5.1)
--- NOTE | 2017-04-18 07:12 | NUR ---
PT SITTING UP IN BED SLEEPING NO S/S DISTRESS NOTED RR EVEN AND UNLABORED WILL CONT TO MONITOR
[2017-04-18 07:47] VITALS: BP 113/46
--- NOTE | 2017-04-18 12:01 | NUR ---
PT BACK FROM DIALYSIS. DIALYSIS NURSE SAID THAT PT BOTTOMED OUT HER BP DURING TX AND HR REACHED LOW 36 AND PT BECAME DISORIENTED. THEY DC DIALYSIS. PT IS ALERT AND ORIENTED NOW. BACK IN HER ROOM AN DENIES ANY NEEDS AT THIS TIME WILL CONT TO MONITOR
--- NOTE | 2017-04-18 13:00 | NUR ---
Nutrition follow-up: Diet: Renal PO intake ~40% average of last 6 meals Labs reviewed +BM PO intake remains poor; RDN will make sure pt receiving Nepro with meals RDN following.
[2017-04-18 17:09] VITALS: BP 104/43
--- NOTE | 2017-04-18 18:03 | NUR ---
PT SITTING UP IN BED SLEEPING NO S/S DISTRESS NOTED RR EVEN AND UNLABORED.
--- NOTE | 2017-04-18 19:20 | NUR ---
RECEIVED REPORT, WILL ASSUME CARE OF PT, SITTING UP IN BED, VISITING WITH FREINDS, DENIES ANY NEEDS AT THIS TIME, BED IS LOW, SRX2, BED ALARM IS ON, WILL CONTINUE PLAN OF CARE
[2017-04-18 20:00] VITALS: BP 92/46
--- NOTE | 2017-04-18 21:21 | NUR ---
HELD ALL BLOODPRESSURE MEDS- BP-92/46
--- NOTE | 2017-04-18 23:58 | NUR ---
ASSESSMENT COMPLETE, SEE FLOWSHEET, PT SLEEPING, BED ALARM IS ON, BED IS LOW, SRX2, CALL LIGHT IN REACH, WILL CONTINUE TO MONITOR
[2017-04-19] VITALS: BP 116/69
[2017-04-19 04:00] VITALS: BP 114/44
[2017-04-19 06:08] LABS: BASOPHILS 0.4 % (0-2); EOSINOPHILS 0.8 % (0-7); HEMATOCRIT 32.6 % (36.0-48.0); HEMOGLOBIN 10.1 g/dL (12-16); IMMATURE GRANULOCYTES 0.3 % (0-5); MCH 28.8 pg (26.0-34.0); MCV 92.9 fL (80.0-100.0); MEAN PLATELET VOLUME 10.9 fL (7.4-10.4); MONOCYTES 14.4 % (2-11); NEUTROPHILS 70.1 % (40-80); PLATELET COUNT 160 10x3/uL (130-400); RBC 3.51 10x6/uL (4.00-5.40); RDW 16.9 % (11.5-14.5); WBC 7.8 10x3/uL (4.8-10.8)
[2017-04-19 06:43] LABS: ANION GAP 9.9 mmol/L (8-16); CARBON DIOXIDE 31.3 mmol/L (21.0-32.0); CREATININE - SERUM 6.3 mg/dL (0.6-1.3); POTASSIUM - SERUM 3.2 mmol/L (3.5-5.1)
--- NOTE | 2017-04-19 07:10 | NUR ---
RECEIVED REPORT. ASSUMED CARE OF PATIENT. CALL LIGHT WITHIN REACH. RESP EVEN AND UNLABORED. NO IV ACCESS. DENIES NEEDS AT THIS TIME. NO DISTRESS.
[2017-04-19 08:10] VITALS: BP 119/46
--- NOTE | 2017-04-19 09:20 | NUR ---
TURNED AND REPOSITIONED AT THIS TIME. TOLERATED MEDS WELL. NO DISTRESS.
[2017-04-19 11:27] VITALS: BP 173/63
--- NOTE | 2017-04-19 12:30 | NUR ---
RESTING WITH EYES CLOSED, DIFFICULT FOR PATIENT TO KEEP EYES OPEN. VERY SLEEPY. FAMILY AT BEDSIDE. RESP EVEN AND UNLABORED. NO DISTRESS.
[2017-04-19 15:16] VITALS: BP 111/51
--- NOTE | 2017-04-19 18:38 | NUR ---
FAMILY FROM [place] HERE TO VISIT PATIENT. PATIENT CONTINUES TO BE SLEEPY. ABLE TO AROUSE PATIENT BUT UNABLE TO KEEP PATIENT AWAKE FOR LONG PERIODS OF TIME. PATIENTS DAUGHTER AND SON, ELVIS, STATE THAT THIS IS NORMAL FOR PATIENT. RESP EVEN AND UNLABORED. CONTINUES ON TELEMETRY. CALL LIGHT WITHIN REACH. NO DISTRESS.
--- NOTE | 2017-04-19 19:24 | NUR ---
RECEIVED REPORT, WILL ASSUME CARE ODF PT, SLEEPING ON L.SIDE, BED IS LOW, SRX2, CALL LIGHT IN REACH, BED ALARM IS ON, WILL CONTINUE PLAN OF CARE
--- NOTE | 2017-04-19 19:54 | NUR ---
LATE ENTRY 1100 CM RECEIVED CONSULT FOR HOSPICE. CM WENT TO PATIENT'S BEDSIDE TO VERIFY SHE WISH TO S/W HOSPICE NURSE. HER SISTER, NORMAN RAMIREZ, WAS AT THE BEDSIDE. THE PATIENT CONFIRMED SHE WANTED HOSPICE AT [facility]. A REFERRAL HAD BEEN SENT TO [facility] ON 04/16/17. PATIENT' SISTER WAS SURPRISED BUT WAS SUPPORTIVE. REFERRAL CALLED TO [facility] PATIENT HAD NO PREFERRED PROVIDER AND LAN IS THE HOSPICE PROVIDER AT [facility]. CM SPOKE W/ SONAL. RECEIVED A CB THAT ROBERT THE REVIEW APPRAISER NURSE WOULD MEET WITH THE PT AND FAMILY AT 1330. 1200 TC TO [facility]. SPOKE WITH THE WEEKEND CAR SWEEPER, BALTAZAR. SHE WAS NOT EXPECTING THE PATIENT THIS WEEKEND. SHE HAD THE REFERRAL, HOWEVER THE DON IS ON [place]ACACTION. THE FRICKERTRON CHECKER WILL REVIEW THE REFERRAL ON FRIDAY. [facility]- [phone] NORMAN RAMIREZ- SISTER- [phone] ELVIS MEADE- SON- CELL [phone]. MS RAMIREZ WILL BE SPEAKING WITH THE SON. ROBERT MET W/ MRS RAMIREZ AT 1335. SHE WENT TO MEET WITH THE PATIENT HOWEVER SHE WAS DIFFICULT TO AROUSE AND SLEEPING SOUNDLY. ROBERT FROM [place] WILL MEET WITH THE PATIENT IN THE AM. THE PATIENT IS MORE ALERT IN THE MORNING PER THE SISTER AND THE PRIMARY NURSE , DORITA. CM UPDATED THE PRIMARY NURSE DORITA. [facility]- [phone]. AWAIT COMPLETION OF HOSPICE REFERRAL AND DECISION BY [facility].
[2017-04-19 20:00] VITALS: BP 113/48
--- NOTE | 2017-04-19 21:45 | NUR ---
PT IS VERY LETHARGIA, WOULDN'T SWALLOW PILL, SO I CRUSHED THEM AND PUT IN APPLESAUCE
--- NOTE | 2017-04-19 21:46 | NUR ---
HELD BLOODPRESSURE MEDS- [id number] BLOODPRESSURE WAS 113/48
[2017-04-20] VITALS: BP 110/49
--- NOTE | 2017-04-20 01:28 | NUR ---
ASSESSMENT COMPLETE, SEE FLOW SHEET, PT IS SLEEPING, BED IS LOW, SRX2, BED ALARM IS ON, CALL LIGHT IN REACH, WILL MONITOR
[2017-04-20 06:15] LABS: BASOPHILS 0.5 % (0-2); EOSINOPHILS 0.8 % (0-7); HEMATOCRIT 32.9 % (36.0-48.0); HEMOGLOBIN 10.1 g/dL (12-16); IMMATURE GRANULOCYTES 0.1 % (0-5); LYMPHOCYTES 15.5 % (15-50); MCH 28.4 pg (26.0-34.0); MCHC 30.7 g/dL (31.0-37.0); MCV 92.4 fL (80.0-100.0); MEAN PLATELET VOLUME 10.5 fL (7.4-10.4); MONOCYTES 16.6 % (2-11); NEUTROPHILS 66.5 % (40-80); PLATELET COUNT 159 10x3/uL (130-400); RBC 3.56 10x6/uL (4.00-5.40); WBC 7.8 10x3/uL (4.8-10.8)
[2017-04-20 06:50] LABS: ANION GAP 12.1 mmol/L (8-16); CALCIUM 8.1 mg/dL (8.5-10.1); CARBON DIOXIDE 29.2 mmol/L (21.0-32.0); CREATININE - SERUM 7.5 mg/dL (0.6-1.3); POTASSIUM - SERUM 3.3 mmol/L (3.5-5.1)
--- NOTE | 2017-04-20 07:24 | NUR ---
PT IN BED WITH ATTENTION TOWARDS TELEVISION DENIES NEEDS AT THIS TIME WILL CONTINUE TO MONITOR
[2017-04-20 07:47] VITALS: BP 110/49
--- NOTE | 2017-04-20 09:55 | NUR ---
FAMILY AT BS. CALL LIGHT IN REACH. WILL MONITOR NEEDS.
--- NOTE | 2017-04-20 10:20 | NUR ---
LEFT ARM WITH GENERALIZED EDEMA. AV FISTULA TO LEFT ARM. GOOD BRUIT AND THRILL. ASSISTED INDUSTRIAL GAS SERVICER SUPERVISOR WITH ELEVATING PATIENT ARM ON PILLOWS. RENAL COAL EQUIPMENT OPERATOR ON UNIT. PATIENT RESTING WITH EYES CLOSED. RESP EVEN AND UNLABORED. TELEMETRY PATENT. NO DISTRESS.
--- NOTE | 2017-04-20 10:28 | NUR ---
NON PITTING EDEMA NOTED IN LEFT ARM. ELEVATED ARM WITH PILLOWS WILL SPEAK WITH NURSE PRACTIONER PRESSER AND BLOCKER KNITTED GOODS AND CONTINUE TO MONITOR.
[2017-04-20 11:41] VITALS: BP 122/48
--- NOTE | 2017-04-20 11:58 | NUR ---
SIGNED DNR PLACED ON CHART AT THIS TIME.
--- NOTE | 2017-04-20 15:45 | NUR ---
IST STEP MATTRESS PLACED AT THIS TIME FOR COMFORT AND FURTHER SKIN BREAKDOWN.
--- NOTE | 2017-04-20 15:45 | NUR ---
1ST STEP MATTRESS PLACED TO PREVENT FUTHER SKIN BREAKDOWN TO SACRUM AND PROVIDE COMFORT TO PATIENT. PATIENT TOLERATED MATTRESS PLACEMENT WELL. FAMILY AT BEDSIDE. NO DISTRESS.
[2017-04-20 16:12] VITALS: BP 112/50
--- NOTE | 2017-04-20 18:01 | NUR ---
PATIENT HAS BEEN ACCEPTED TO [facility]. DISCHARGE INSTRUCTIONS PROVIDED TO FAMILY AT THIS TIME. [facility] CALLED FOR TRANSPORT. ETA OF 30 MINUTES GIVEN BEFORE ARRIVAL. PATIENT RESTING ON 1ST STEP. RESP EVEN AND UNLABORED. NO DISTRESS.
--- NOTE | 2017-04-20 18:25 | NUR ---
[facility] HERE TO PICK PATIENT UP FOR TRANSFER AT 1815. PATIENT LEFT UNIT AT THIS TIME VIA [facility]NEY WITH 2 ATTENDANTS. NO DISTRESS UPON LEAVING UNIT. FAMILY THANKED STAFF FOR CARES RENDERED DURING PATIENT STAY.
--- NOTE | 2017-04-20 19:32 | NUR ---
Late Entry 1100 CM telephone [facility] regarding f/u on referral. Received a CB from [place]. She advised Zahraa would be the nurse to f/u today. ERNESTINE received TC from Zahraa. She would meet with the family this early afternoon. Zahraa onsite. Spoke with multiple family members. Patient did not meet GIP criteria. DR Pal had indicated that the patient could stay at [facility] for [facility] hospice to the family. The family requested referral to [facility] at [facility]. TC [facility]. Received CB from Ro, the salesperson automobiles nurse. Packet provided for review. Ro met w/ the family. Referral completed. Patient did not meet GIP criteria. However she could be admitted to [facility] under Respite Care initially. Family wants patient discharged to [facility] at [facility] for respite care. Primary nurse spoke w/ MD. Orders received to discharge to [facility]. DR Jara is receiving MD/ patient to be admitted to 554. Ro provided report to Ching, the charge nurse at [facility]. Patient's chart packet had been received by Ro. Transportation arrangements by [facility]. ERNESTINE spoke with Teofilo. Patient has nasal O2 at 3/l via n/c. Bed confined. PSC form completed. 1830- Patient discharged to [facility] via ambulance.
[2017-04-21 14:14] LABS: FUNGUS MYCOLOGY CULTURE Preliminary report (())
[2017-04-22 10:18] LABS: FUNGUS CULTURE RESULT 1 Candida albicans (())
== END 2017-04-20 18:25 | disposition home health service (06) | DRG 180 ==
LOC: D.ER 07:43 → D.M2 12:11
PROVIDERS: Emergency Medicine; Internal Medicine Nephrology; Internal Medicine Pulmonary Disease; Radiology Diagnostic Radiology; ADMIT Internal Medicine Nephrology
PROC: 5A1D60Z (ICD-10-PCS; principal; 2017-04-07)
PROC: 0BB68ZX Excision of Right Lower Lobe Bronchus, Via Natural or Artificial Opening Endoscopic, Diagnostic (ICD-10-PCS; 2017-04-14)
PROC: 0BBF3ZX Excision of Right Lower Lung Lobe, Percutaneous Approach, Diagnostic (ICD-10-PCS; 2017-04-17)
DX: C34.31 Malignant neoplasm of lower lobe, right bronchus or lung (principal); J18.9 Pneumonia, unspecified organism; N18.6 End stage renal disease; J44.0 Chronic obstructive pulmonary disease with (acute) lower respiratory infection; N39.0 Urinary tract infection, site not specified; I12.0 Hypertensive chronic kidney disease with stage 5 chronic kidney disease or end stage renal disease; J91.0 Malignant pleural effusion; J44.1 Chronic obstructive pulmonary disease with (acute) exacerbation; Z66 Do not resuscitate; R19.7 Diarrhea, unspecified; E11.22 Type 2 diabetes mellitus with diabetic chronic kidney disease; Z99.2 Dependence on renal dialysis; I25.10 Atherosclerotic heart disease of native coronary artery without angina pectoris; D63.1 Anemia in chronic kidney disease; E11.40 Type 2 diabetes mellitus with diabetic neuropathy, unspecified; E78.5 Hyperlipidemia, unspecified; E87.6 Hypokalemia; K21.9 Gastro-esophageal reflux disease without esophagitis; M06.9 Rheumatoid arthritis, unspecified; Z95.5 Presence of coronary angioplasty implant and graft; Z87.891 Personal history of nicotine dependence